=== PATIENT | female | born 1945 | race Caucasian/White ===

== ENCOUNTER → 2023-09-05 13:46 | Outpatient (CLI) | payer MEDICARE, SELFPAY ==
[2023-09-05 14:57] LABS: Add Manual Diff / Slide Review NO; Basophils Absolute Auto 100 /uL (0-100); Basophils Percent Auto 0.9 % (0-2); Eosinophils Absolute Auto 100 /uL (0-450); Eosinophils Percent Auto 1.4 % (2-4); Hematocrit 49.9 % (36-46); Hemoglobin 16.9 g/dL (12.0-16.0); Lymphocytes Absolute Auto 1700 /uL (1100-4500); Lymphocytes Percent Auto 24.5 % (25-40); Mean Corpuscular HGB Conc 33.8 % (30-36); Mean Corpuscular Hemoglobin 32.5 PG (26-34); Mean Corpuscular Volume 96.3 fL (80-100); Monocytes Absolute Auto 500 /uL (0-900); Monocytes Percent Auto 7.5 % (3-14); Neutrophils Absolute Auto 4500 /uL (1500-7000); Neutrophils Percent Auto 65.7 % (50-75); Platelet Count 205 X10^3/uL (150-400); Red Blood Cell Count 5.19 X10^6/uL (4.0-5.2); Red Cell Distribution Width 14.2 % (11.6-14.8); White Blood Cell Count 6.8 X10^3/uL (4.5-11.0)
[2023-09-05 15:19] LABS: Alanine Aminotransferase 21 IU/L (<35); Albumin 4.4 g/dL (3.5-5.0); Albumin Globulin Ratio 1.4 (1.0-2.8); Alkaline Phosphatase 93 U/L (38-126); Aspartate Aminotransferase 25 IU/L (14-36); BUN Creatinine Ratio 24.2 (6-22); Bilirubin Total 0.7 mg/dL (0.2-1.3); Blood Urea Nitrogen 16 mg/dL (7-17); Calcium 9.4 mg/dL (8.4-10.2); Carbon Dioxide 30 mmol/L (22-32); Chloride 105 mmol/L (98-107); Cholesterol 193 mg/dL (140-199); Estimated Glomerular Filt Rate > 60 mL/min (>60); Globulin 3.1 g/dL (1.7-4.1); Glucose 93 mg/dL (80-110); HDL Cholesterol 59 mg/dL (40-60); HEMOLYSIS < 15 (0-50); LDL Cholesterol Calculated 103 mg/dL (<100); Potassium 3.9 mmol/L (3.4-5.1); Sodium 141 mmol/L (137-145); Total Protein 7.5 g/dL (6.3-8.2); Triglycerides 153 mg/dL (35-150)
== END ==
PROVIDERS: PCP Family Medicine; Referring Provider Family Medicine; Visit Provider Family Medicine
DX: Z00.00 Encounter for general adult medical examination without abnormal findings (principal); I10 Essential (primary) hypertension; E78.5 Hyperlipidemia, unspecified; Z76.89 Persons encountering health services in other specified circumstances
CPT/HCPCS: 80053; 80061; 85025

== ENCOUNTER 2024-08-17 13:04 | Emergency (ER) | payer MEDICARE, OTHER, SELFPAY ==
[2024-08-17] VITALS (8 sets, daily range): BP systolic 141–227; BP diastolic 66–101; PULSE 69–88; RESP 17; TEMP 36.2; O2SAT 96–99; BMI 28.1
--- NOTE | 2024-08-17 13:26 | EKG_ITS ---
[address] [address] Test Date: 2024-08-17 Pat Name: Cheri Hernandez Department: [facility] Room: Gender: Female Insole Channeler: BISI : 1945 Requested By: Order Number: [id number] Reading MD: Donnie Varela Measurements Intervals [place] Rate: 75 P: 48 PA: 140 QRS: 49 QRSD: 68 T: 52 QT: 418 QTc: 466 Interpretive Statements Normal sinus rhythm Electronically Signed On 08-19-2024 8:43:33 PDT by Donnie Varela
--- NOTE | 2024-08-17 14:05 | ED_ITS ---
HPI - Abdominal Pain General Chief Complaint: Abdominal Pain Stated Complaint: Constipation t-14, Abd Px Time Seen by Provider: 08/17/24 14:04 Source: patient, RN notes reviewed and old records reviewed Mode of arrival: Ambulatory Limitations: no limitations History of Present Illness HPI narrative: 79-year-old female history of hypertension, dyslipidemia presents with complaint of abdominal starting August 05 that was severe improved and constipation since 08/05/24. Patient states she has had some abdominal pain kind of more in the upper abdomen across to both sides does sometimes go towards her back. Worse with eating. She has had some decreased appetite this week denies fevers or chills has felt a little bit colder. Threw up 4 times on August 06 but states she has a lot of nachos and hot salsa and thought it was secondary to that. Did feel nauseated a couple days ago but not currently. Patient states she did have a bowel movement on 3 days ago after taking a laxative on Monday. She states it was quite a bit of liquid no black or bloody stools there are several chunks that appeared to be she do sized. Patient has denied any urinary symptoms. No new swelling in extremities. Patient states symptoms have not worsened pain might actually be little bit better but has not resolved so she came for evaluation. Does have a history significant for hypertension has been out of her lisinopril, does have a history of back surgery, back stimulator and appendectomy. Not on any prescription medications currently. No known drug allergies. No tobacco, alcohol or recreational drugs. She was establishing with a primary care physician and Guerline Perez next month. Was seeing Dr. Roberts prior to this. Patient is accompanied by family. Patient notes had a brother who of small-bowel obstruction sister who had some kind of gastric issues and had to have emergency surgery for stomach. Related Data Home Medications Medication Instructions Recorded Confirmed Cymbalta 30 mg PO 2XD 08/17/24 08/17/24 Spiriva Respimat 08/17/24 Ventolin 08/17/24 Previous Rx's Medication Instructions Recorded Disabled Parking Permit #1 ea 09/05/23 rosuvastatin 20 mg tablet 20 mg PO DAILY #90 tabs 09/12/23 hydrochlorothiazide 12.5 mg tablet 12.5 mg PO DAILY #90 tabs 12/25/23 albuterol sulfate 90 mcg/actuation 2 puff inhalation Q4-6H PRN 01/31/24 aerosol inhaler (ProAir HFA) shortness of breath or wheezing #6.7 grams duloxetine 30 mg capsule,delayed 30 mg PO BID PRN back pain #180 01/31/24 release caps tiotropium bromide 2.5 2 puff inhalation DAILY #4 grams 01/31/24 mcg/actuation mist for inhalation (Spiriva Respimat) hydrochlorothiazide 12.5 mg tablet 12.5 mg PO DAILY #30 tabs 08/17/24 rosuvastatin 20 mg tablet 20 mg PO DAILY #30 tabs 08/17/24 Allergies Allergy/AdvReac Type Severity Reaction Status Date / Time No Known Drug Allergies Allergy Verified 08/17/24 13:08 Review of Systems Review of Systems ROS Unobtainable: All systems reviewed & are unremarkable except as noted in HPI and below Patient History Medical History Hearing loss Cataracts, bilateral (~2018) Peripheral vascular disease History of tobacco use Chronic back pain HLD (hyperlipidemia) HTN (hypertension) Surgical History Anesthesia History of surgery (~2019) History of back surgery History of surgery History of appendectomy Family History Brother No problems noted. Sister Cancer Sister No problems noted. Social History Smoking Status: Former smoker Smoking Status: Former smoker Exam Narrative Exam Narrative: GENERAL: Alert and oriented x three, female in mild distress HEENT: Head normocephalic, atraumatic, EOMI, pupils reactive, face symmetric, moist mucous membranes NECK: Supple, full range of motion CARDIOVASCULAR: Regular rate and rhythm without murmurs, rubs or gallops. RESPIRATORY: Breath sounds equal bilaterally, no wheezes rales or rhonchi. ABDOMEN: Soft, nontender. Patient is slightly distended and feels full. Normoactive bowel sounds all 4 quadrants. No guarding or rebound, rigidity, no mass : No CVA tenderness EXTREMITIES: Normal range of motion, no clubbing or edema. Neurovascularly intact NEUROLOGICAL: Cranial nerves II through XII grossly intact. Moving all extremities SKIN: Warm, dry, no petechiae, no rashes or lesions. Initial Vital Signs Initial Vital Signs: Vital Signs Temperature 97.2 F L 08/17/24 13:09 Pulse Rate 88 08/17/24 13:09 Respiratory Rate 17 08/17/24 13:09 Blood Pressure 227/101 H 08/17/24 13:09 Pulse Oximetry 99 08/17/24 13:09 Oxygen Delivery Method Room Air 08/17/24 13:09 Course Orders Ordered: ED Orders 08/17/24 13:16 EKG-12 Lead Stat 08/17/24 13:56 Cancer Antigen 125 Stat Complete Blood Count AUTO DIFF Stat Comprehensive Metabolic Panel Stat Lipase Stat 08/17/24 14:17 CT abdomen pelvis w con Stat Discontinued Medications Ketorolac Tromethamine (Ketorolac 30 Mg/Ml Vial) 15 mg IV NOW ONE Stop: 08/17/24 15:01 Last Admin: 08/17/24 15:04 Dose: 15 mg Documented By: UMA Ondansetron HCl (Ondansetron 4 Mg/2 Ml Inj) 4 mg IV NOW PRN PRN Reason: Nausea And Vomiting Ondansetron HCl (Ondansetron 4 Mg Odt) 4 mg PO NOW PRN PRN Reason: Nausea And Vomiting Vital Signs Vital signs: Vital Signs - 8 hr 08/17/24 13:09 08/17/24 13:55 08/17/24 14:00 Temperature 97.2 F L Pulse Rate 88 73 72 Respiratory Rate 17 Blood Pressure 227/101 H 141/66 H 141/68 H Pulse Oximetry 99 98 97 Oxygen Delivery Method Room Air 08/17/24 14:34 08/17/24 15:00 08/17/24 15:30 Temperature Pulse Rate 75 69 71 Respiratory Rate Blood Pressure 186/84 H Pulse Oximetry 97 97 97 Oxygen Delivery Method 08/17/24 16:00 08/17/24 16:20 Temperature Pulse Rate 70 69 Respiratory Rate Blood Pressure 151/69 H Pulse Oximetry 97 96 Oxygen Delivery Method MDM - Abdominal Pain Lab Data 08/17/24 13:56 08/17/24 13:56 Labs: Lab Results 08/17/24 Range/Units 13:56 WBC 7.8 (4.5-11.0) X10^3/uL RBC 4.42 (4.0-5.2) X10^6/uL Hgb 14.1 (12.0-16.0) g/dL Hct 42.1 (36-46) % MCV 95.3 (80-100) fL MCH 31.9 (26-34) PG MCHC 33.5 (30-36) % RDW 12.7 (11.6-14.8) % Plt Count 333 (150-400) X10^3/uL Neut % (Auto) 77.3 H (50-75) % Lymph % (Auto) 15.4 L (25-40) % [place] % (Auto) 4.7 (3-14) % Eos % (Auto) 1.6 L (2-4) % Baso % (Auto) 1.0 (0-2) % Neut # (Auto) 6000 (9635-3112) /uL Lymph # (Auto) 1200 (3894-2332) /uL [place] # (Auto) 400 (0-900) /uL Eos # (Auto) 100 (0-450) /uL Baso # (Auto) 100 (0-100) /uL Sodium 139 (137-145) mmol/L Potassium 3.8 (3.4-5.1) mmol/L Chloride 103 (98-107) mmol/L Carbon Dioxide 27 (22-32) mmol/L BUN 11 (7-17) mg/dL Creatinine 0.59 (0.52-1.04) mg/dL Estimated GFR > 60 (>60) mL/min BUN/Creatinine Ratio 18.6 (6-22) Glucose 93 (80-110) mg/dL Calcium 8.6 (8.4-10.2) mg/dL Total Bilirubin 0.5 (0.2-1.3) mg/dL AST 28 (14-36) IU/L ALT 29 (<35) IU/L Alkaline Phosphatase 75 (38-126) U/L Total Protein 6.6 (6.3-8.2) g/dL Albumin 3.8 (3.5-5.0) g/dL Globulin 2.8 (1.7-4.1) g/dL Albumin/Globulin Ratio 1.4 (1.0-2.8) Lipase 196 (23-300) U/L CA 125 Antigen 50.9 H (0-35) U/mL Point of care testing: Urine Dip Bedside Urine Glucose Negative Bedside Urine Bilirubin - Negative Bedside Urine Ketone - Negative Urine Specific [place] 1.005 Bedside Urine Occult Blood - Negative Bedside Urine pH 6.0 Bedside Urine Protein - Negative Bedside Urine Urobilinogen - Negative Bedside Urine Nitrite - Negative Bedside Urine Leukocytes - Negative Esterase Imaging Data CT scan - abdomen/pelvis: Radiologist's Impression: Cheri Hernandez??79??F??1945 ? Allergy/Adv: No Known Drug Allergies Close Abdomen/Pelvis CT (Signed) Kamille Vyasth - 08/17/24 Launch?[address] [address] [address] Scan Report Signed Patient: Cheri Hernandez MR#: [id number] : 1945 Acct:[id number] Age/Sex: 79 / F Date of Service: 08/17/24 Loc: ED Accession Number: [id number] Procedure: CT abdomen pelvis w con Ordering Provider: Sabrina Gonzalez D.O. PROCEDURE: CT ABDOMEN PELVIS W CON INDICATIONS: constipation since 08/05, liquid BM 2 days ago, bloating TECHNIQUE: After the administration of intravenous contrast, axial sections acquired from the lung bases to the pubic symphysis. Coronal and sagittal reformats were performed. For radiation dose reduction, the following was used: automated exposure control, adjustment of mA and/or kV according to patient size. COMPARISON: None. FINDINGS: Image quality: Diagnostic. Lower Chest: No significant findings. ABDOMEN: Liver: No solid mass. Gallbladder: No radiopaque gallstones or wall thickening. Biliary ducts: No biliary dilation. Pancreas: There is marked mesenteric edema about the pancreas which has a mildly edematous appearance. There is no ductal dilation or focal mass.. Spleen: Size is within normal limits. Adrenal Glands: No adrenal nodules. Kidneys and Ureters: No hydronephrosis. No solid mass. No complex renal cystic lesion which requires follow up. Stomach and Bowel: Normal colonic caliber, without significant wall thickening. Peritoneum: No abnormal intraperitoneal fluid. No free air. Ventral Wall: No significant ventral hernia. Abdominal Nodes: No retroperitoneal or mesenteric adenopathy by size criteria. Vessels: Aorta and inferior vena cava are normal in size. PELVIS: Pelvic Organs: There is a nearly 8 cm right ovarian cystic lesion which is heterogeneous and a 4.2 cm left ovarian cyst. Calcified fibroids are seen within the uterus.. Bladder: No bladder wall thickening, accounting for underdistention. Pelvic Nodes: No enlarged lymph nodes. Miscellaneous: No inguinal hernias are seen. In the spinal stimulator is seen within the thoracic spine with wires and device in these subcutaneous fat of the right flank. This Bones: No aggressive osseous abnormality. Postsurgical changes of the lumbar spine are shown. Severe bilateral hip osteoarthritis is present. IMPRESSION: 1. Acute pancreatitis. 2. Bilateral ovarian cystic lesions which are suspicious. Pelvic ultrasound is recommended for further evaluation when clinically feasible. Dictated by: Ivet Vyas M.D. on 08/17/2024 at 14:03 Approved by: Ivet Vyas M.D. on 08/17/2024 at 14:08 ECG Data Attestation: I personally reviewed and interpreted this ECG as follows: Prior ECG tracings: not available for review Interpretation: Sinus rhythm rate of 75 MI 140 QRS is 68 QTC of 466, no acute ST elevation likely motion artifact in V2, nonspecific change otherwise. No prior for comparison. MDM Narrative Medical decision making narrative: 79-year-old female presents with complaint of abdominal pain particularly worse with eating food but notes she has been constipated has had a bowel movement last after a laxative which she describes as liquidy but a large amount of stool. Patient does feel little bit full and distended on exam although she was nontender. Sinus rhythm nonspecific change. Labs show white count 7.8 hemoglobin of 14 platelets of 333. Electrolytes are appropriate BUN and creatinine are normal glucose is 93 bilirubin, AST ALT and lipase are normal. Point of care urine is negative. CT abdomen pelvis shows mesenteric edema about the pancreas mildly edematous appearance no ductal dilation or focal mass, 8 cm right ovarian cystic lesion heterogeneous and a 4.2 left ovarian cyst calcified fibroid seen within the uterus. Posterior goal changes of the lumbar spine, severe bilateral hip osteoarthritis spinal stimulator seen within thoracic spine with the wires devices and subcutaneous fat of the right flank. Patient's do not show pancreatitis but there is some changes potential acute pancreatitis on CT imaging also has not 8 cm right ovarian cystic lesion and 4.2 left ovarian cyst. Findings were discussed with flying teacher, Dr. Fraire. She asked for a CA 125, to make sure patient is cc to her and they will try to get patient in this Monday for follow up. Discussed findings with the patient at this time I feel she was appropriate for discharge home for follow-up with gynecology, patient is also to follow up with her primary care she does have some changes of the pancreas but normal labs she has had longstanding symptoms I do not feel that she needs to be admitted today. Reviewed findings with the patient she feels comfortable with the plan. We did discuss that is very concerning that she has these enlarged cystic lesions at the ovaries and it is very important that she follows up. She defers anything for pain at home. She was out of her blood pressure medication as well as her medication for dyslipidemia she has a follow up in a month we will refill these for 30 days. Discharge Plan Departure Patient Disposition: Home Clinical Impression: Bilateral ovarian cysts Activity Restrictions/Additional Instructions: Your labs show normal pancreatic enzymes but you do have a little bit of edema the pancreas. This could be associated with pancreatitis but you do not have any labs changes consistent with pancreatitis. Follow up with your primary care physician regarding these changes. It is also noted that you have bilateral ovarian cystic lesions on your imaging, this is not a normal finding. You need to follow up with flying teacher for further workup. You do have one test currently pending for this follow up. I spoke with on-call OB today they would like to see you potentially Monday versus Monday. Call Monday morning to set up a follow up appointment. I spoke with Dr. Fraire, her contact information is below. Pres[facility] for your blood pressure and cholesterol [facility] [place]. Please return for fevers, new or worsening abdominal back or flank pain, persistent vomiting, lightheadedness or passing out or other new or concerning changes. Prescriptions: New hydrochlorothiazide 12.5 mg tablet 12.5 mg PO DAILY Qty: 30 0RF rosuvastatin 20 mg tablet 20 mg PO DAILY Qty: 30 0RF No Action rosuvastatin 20 mg tablet 20 mg PO DAILY Qty: 90 0RF hydrochlorothiazide 12.5 mg tablet 12.5 mg PO DAILY Qty: 90 1RF Rx Instructions: [facility] Phone# Fax# albuterol sulfate [ProAir HFA] 90 mcg/actuation HFA aerosol inhaler 2 puff inhalation Q4-6H PRN (Reason: shortness of breath or wheezing) Qty: 6.7 1RF duloxetine 30 mg capsule,delayed release(DR/EC) 30 mg PO BID PRN (Reason: back pain) Qty: 180 1RF Rx Instructions: [facility] Phone# Fax# Spiriva Respimat 2.5 mcg/actuation mist 2 puff inhalation DAILY Qty: 4 1RF Rx Instructions: [facility] Phone# Fax# (DME) Disabled Parking Permit See Rx Instructions .Route .MEDSUPPLY Qty: 1 0RF Rx Instructions: Valid for 5 years Cymbalta 30 mg PO 2XD Ventolin Spiriva Respimat Referrals: Karla Fraire MD [Physician] - Marisela Lofton DO [Primary Care Provider] - Stand Alone Forms: Patient Portal/API/Survey
[2024-08-17 14:15] LABS: Alanine Aminotransferase 29 IU/L (<35); Albumin 3.8 g/dL (3.5-5.0); Albumin Globulin Ratio 1.4 (1.0-2.8); Alkaline Phosphatase 75 U/L (38-126); Aspartate Aminotransferase 28 IU/L (14-36); BUN Creatinine Ratio 18.6 (6-22); Bilirubin Total 0.5 mg/dL (0.2-1.3); Blood Urea Nitrogen 11 mg/dL (7-17); Calcium 8.6 mg/dL (8.4-10.2); Carbon Dioxide 27 mmol/L (22-32); Chloride 103 mmol/L (98-107); Estimated Glomerular Filt Rate > 60 mL/min (>60); Globulin 2.8 g/dL (1.7-4.1); Glucose 93 mg/dL (80-110); HEMOLYSIS < 15 (0-50); Lipase 196 U/L (23-300); Potassium 3.8 mmol/L (3.4-5.1); Sodium 139 mmol/L (137-145); Total Protein 6.6 g/dL (6.3-8.2)
--- NOTE | 2024-08-17 14:17 | DI.CT.S_ITS ---
PROCEDURE: CT ABDOMEN PELVIS W CON INDICATIONS: constipation since 08/05, liquid BM 2 days ago, bloating TECHNIQUE: After the administration of intravenous contrast, axial sections acquired from the lung bases to the pubic symphysis. Coronal and sagittal reformats were performed. For radiation dose reduction, the following was used: automated exposure control, adjustment of mA and/or kV according to patient size. COMPARISON: None. FINDINGS: Image quality: Diagnostic. Lower Chest: No significant findings. ABDOMEN: Liver: No solid mass. Gallbladder: No radiopaque gallstones or wall thickening. Biliary ducts: No biliary dilation. Pancreas: There is marked mesenteric edema about the pancreas which has a mildly edematous appearance. There is no ductal dilation or focal mass.. Spleen: Size is within normal limits. Adrenal Glands: No adrenal nodules. Kidneys and Ureters: No hydronephrosis. No solid mass. No complex renal cystic lesion which requires follow up. Stomach and Bowel: Normal colonic caliber, without significant wall thickening. Peritoneum: No abnormal intraperitoneal fluid. No free air. Ventral Wall: No significant ventral hernia. Abdominal Nodes: No retroperitoneal or mesenteric adenopathy by size criteria. Vessels: Aorta and inferior vena cava are normal in size. PELVIS: Pelvic Organs: There is a nearly 8 cm right ovarian cystic lesion which is heterogeneous and a 4.2 cm left ovarian cyst. Calcified fibroids are seen within the uterus.. Bladder: No bladder wall thickening, accounting for underdistention. Pelvic Nodes: No enlarged lymph nodes. Miscellaneous: No inguinal hernias are seen. In the spinal stimulator is seen within the thoracic spine with wires and device in these subcutaneous fat of the right flank. This Bones: No aggressive osseous abnormality. Postsurgical changes of the lumbar spine are shown. Severe bilateral hip osteoarthritis is present. IMPRESSION: 1. Acute pancreatitis. 2. Bilateral ovarian cystic lesions which are suspicious. Pelvic ultrasound is recommended for further evaluation when clinically feasible. Dictated by: Ivet Vyas M.D. on 08/17/2024 at 14:03 Approved by: Ivet Vyas M.D. on 08/17/2024 at 14:08
[2024-08-17 14:19] LABS: Add Manual Diff / Slide Review NO; Basophils Absolute Auto 100 /uL (0-100); Eosinophils Absolute Auto 100 /uL (0-450); Eosinophils Percent Auto 1.6 % (2-4); Hematocrit 42.1 % (36-46); Hemoglobin 14.1 g/dL (12.0-16.0); Lymphocytes Absolute Auto 1200 /uL (1100-4500); Lymphocytes Percent Auto 15.4 % (25-40); Mean Corpuscular HGB Conc 33.5 % (30-36); Mean Corpuscular Hemoglobin 31.9 PG (26-34); Mean Corpuscular Volume 95.3 fL (80-100); Monocytes Absolute Auto 400 /uL (0-900); Monocytes Percent Auto 4.7 % (3-14); Neutrophils Absolute Auto 6000 /uL (1500-7000); Neutrophils Percent Auto 77.3 % (50-75); Platelet Count 333 X10^3/uL (150-400); Red Blood Cell Count 4.42 X10^6/uL (4.0-5.2); Red Cell Distribution Width 12.7 % (11.6-14.8); White Blood Cell Count 7.8 X10^3/uL (4.5-11.0)
[2024-08-17] MEDS: KETOROLAC 30 MG/ML VIAL 15 MG IV (15:04)
--- NOTE | 2024-08-17 15:32 | PC.NURSE ---
Dr.Garde hsu'd for consult with @[phone] and savita @[phone].
[2024-08-17 16:18] LABS: Cancer Antigen 125 50.9 U/mL (0-35)
== END 2024-08-17 16:27 | disposition home or self-care (01) ==
PROVIDERS: Emergency Provider Emergency Medicine; PCP Family Medicine
DX: N83.202 Unspecified ovarian cyst, left side (principal); N83.201 Unspecified ovarian cyst, right side; K59.00 Constipation, unspecified
CPT/HCPCS: 36415; 74177; 80053; 81003; 83690; 85025; 86304; 93005; 96374; 99284; J1885; Q9967

== ENCOUNTER → 2024-08-23 15:17 | Outpatient (CLI) | payer MEDICARE, OTHER, SELFPAY ==
--- NOTE | 2024-08-23 15:18 | DI.US.S_ITS ---
PROCEDURE: US PELVIC COMPLETE INDICATIONS: abnormal CT scan ovarian cystic lesion TECHNIQUE: Real-time scanning was performed of the pelvic organs, with image documentation. Additional endovaginal scanning was necessary due to incomplete visualization of the adnexal and endometrial structures by transabdominal scanning. COMPARISON: [facility], CT, CT ABDOMEN PELVIS W CON, 08/17/2024, 14:23. FINDINGS: Uterus: Uterus is retroverted and normal in size at 4.9 x 4.3 x 2.9 cm. The myometrium is heterogeneous. The endometrium measures 12 mm combined thickness. Intramural fibroids with internal calcifications are present, measuring 2.0 x 1.9 x 1.9 centimeter and 3.0 x 3.7 x 2.1 centimeter. Ovaries: The right ovary measures 8.8 x 7.6 x 6.2 cm, with a calculated ovarian volume of 217 cc. The left ovary is not clearly identified. There is a right ovarian cystic mass containing multiple thin internal septations and no internal papillary projections. This measures 8.1 x 7.1 x 6.3 centimeter. Simple appearing left adnexal cystic structure measuring 3.3 x 4.2 x 3.7 centimeter, without papillary projections. Other: No pathologic free abdominal or pelvic fluid. IMPRESSION: Multiloculated right ovarian cystic lesion measuring 8.1 x 7.1 x 6.3 centimeters. O-RADS 3. Consider nonemergent pelvic MRI for complete characterization. Simple appearing left adnexal cystic lesion measuring 3.3 x 4.2 x 3.7 centimeter. O-RADS 2. We strive to produce accurate, complete, and clear reports of imaging services. To assist us in improving patient care, this report was composed using standard report templates and voice recognition software. Therefore, it may contain abnormal punctuation, insertions and/or omissions. Occasional wrong-word or sound-alike substitutions may occur. Though we review the report and make efforts to correct it, we do recommend that the report be read carefully in proper context to recognize any text inaccuracies. Dictated by: Jerry Espinoza M.D. on 08/23/2024 at 16:28 Approved by: Jerry Espinoza M.D. on 08/23/2024 at 16:31
== END ==
PROVIDERS: PCP Family Medicine; Referring Provider Obstetrics & Gynecology; Visit Provider Obstetrics & Gynecology
DX: N83.201 Unspecified ovarian cyst, right side (principal); N83.202 Unspecified ovarian cyst, left side; D25.1 Intramural leiomyoma of uterus
CPT/HCPCS: 76830; 76856

== ENCOUNTER 2024-09-03 12:09 | Day surgery (SDC) | payer MEDICARE, OTHER, SELFPAY ==
[2024-08-27 14:04] VITALS: BMI 28.1
[2024-09-03] VITALS (7 sets, daily range): BP systolic 117–185; BP diastolic 62–88; PULSE 68–94; RESP 12–18; TEMP 36.2–36.6; O2SAT 94–97; BMI 28.1
--- NOTE | 2024-09-03 | PATH_ITS ---
[facility] Accession Number: [id number] No. of containers..02 Tissue . 01 Material submitted: . PART A: ovary - BILATERAL OVARIES AND PARTIAL FALLOPIAN TUBES PART B: endometrium - ENDOMETRIAL CURETTING . 01 Diagnosis: A. BILATERAL OVARIES AND PARTIAL FALLOPIAN TUBES: Segment of fallopian tube, complete cross-sections; negative for significant atypia. First-described ovary (7.6 cm in greatest dimension) with a benign multiloculated serous cystadenoma. Second-described segment of fallopian tube, complete cross-section; negative for significant atypia. Second-described ovary (3.7 cm in greatest dimension) with a benign multiloculated serous cystadenoma. No atypia identified. . B. ENDOMETRIAL CURETTING: Portions of metaplastic squamous mucosa; negative for significant atypia. Detached glandular elements; negative for significant atypia. Suboptimal for evaluation of glandlular hyperplasia or neoplasia due to scant endometrial stromal component. Please see comment. [facility] 09/09/2024 1439 Local . 01 Comment: Part B: Due to the scant nature of this biopsy, it may not be entirely cordage sales representative of this patient's endometrium; additional sampling could be considered, if clinically appropriate. . Parts of this case were also reviewed by Dr. Rodri Mcrae (Julie), who agrees with the interpretation. . 01 Electronically signed: . Renetta Lima MD, Pathologist NPI- [id number] . 01 Gross description: . A. Received in formalin with two patient identifiers and bilateral ovaries and partial fallopian tubes are two tubo-ovarian units. The first has a dilated multicystic, disrupted ovary, 7.6 x 6.8 x 2.5 cm and weighing 28 grams with an attached nonfimbriated segment of fallopian tube, 2.7 cm in length by 0.5 cm in diameter. The tube has avina smooth serosa with no cysts identified and the lumen is stellate and unremarkable. The external surface of the ovary is inked blue and sectioning reveals a multiloculated cyst with contents ranging from clear and serous to avina and gelatinous. The cyst oliveros are relatively uniform in thickness at approximately 0.1 cm thick. An area of papillary excrescences is identified with excrescences measuring up to 0.5 cm in greatest dimension. No normal ovarian parenchyma is identified. . The second ovary is 3.7 x 3.3 x 2.7 cm and weighs 13 grams. The attached portion of nonfimbriated segment of fallopian tube measures 2.6 x 0.4 cm. The tube has avina smooth serosa with no cysts identified and the lumen is stellate and unremarkable. The ovary is dilated and multicystic with the external surface inked green. Sectioning reveals a multiloculated cystic structure with thin oliveros averaging less than 0.1 cm thick with no excrescences identified. The contents are clear and serous. No normal ovarian parenchyma is identified. Materials Scheduler are submitted as follows: A1: First fallopian tube. A2-A8: First ovary. Note: All excrescences are submitted in A2-A3. A9: Second fallopian tube. A10-A12: Second ovary. B. Received in formalin with two patient identifiers and endometrial curetting, is a scant amount of avina soft tissue admixed with mucohemorrhagic material on friable Telfa paper aggregating to 0.5 x 0.3 x 0.1 cm. Filtered and submitted entirely in B1. ([id number]) /MRV 09/04/20242058 Local . 01 Pathologist provided ICD-10: N83.299 . 01 CPT . 861827, 695331 Specimen Comment: A courtesy copy of this report has been sent to [phone] Performed at: [address] [facility] [address], [place], [place] [id number] MD Richard Vazquez MD Phone: [phone]
--- NOTE | 2024-09-03 07:41 | PM.GYNHP.1 ---
History of Present Illness History of Present Illness Reason for admission: pelvic mass Narrative: Cheri Hernandez is a 79 year old female 2 para 2 with bilateral ovarian masses, and thickened endometrial lining on ultrasound with postmenopausal bleeding She presents for a laparoscopic bilateral salpingo-oophorectomy and D and C hysteroscopy. [facility] Medical History (Updated 09/01/24 @ 00:01 by ) Presence of neurostimulator Hearing loss Cataracts, bilateral (~2017) Peripheral vascular disease History of tobacco use Chronic back pain HLD (hyperlipidemia) HTN (hypertension) Surgical History Anesthesia History of surgery (~2019) History of back surgery History of surgery History of appendectomy Family History Brother No problems noted. Sister Cancer Sister No problems noted. Social History Smoking Status: Former smoker alcohol intake: current Meds Home Medications and Allergies Home Medications Medication Instructions Recorded Confirmed Type Disabled Parking Permit #1 ea 09/05/23 08/26/24 Rx hydrochlorothiazide 12.5 mg tablet 12.5 mg PO DAILY #30 tabs 08/17/24 09/03/24 Rx rosuvastatin 20 mg tablet 20 mg PO DAILY #30 tabs 08/17/24 09/03/24 Rx Allergies Allergy/AdvReac Type Severity Reaction Status Date / Time No Known Drug Allergies Allergy Verified 09/03/24 12:35 Exam Narrative Exam Narrative: HEENT: No thyromegaly, no anterior cervical or supraclavicular lymphadenopathy. Lungs:Clear to auscultation bilaterally, no wheezes. Cardiovascular: Regular rate and rhythm, no murmurs, rubs, or gallops. Abdomen: Well-healed scars. No hepatosplenomegaly. No masses palpable. External genitalia: Normal Vagina: Normal Cervix: Normal Bimanual exam: 5 Week size anteverted uterus. Mobile. Extremities: No edema Assessment & Plan Assessment & Plan narrative: Assessment: 79-year-old 2 para 2 with bilateral ovarian masses Thickened endometrium on ultrasound with postmenopausal bleeding Plan: Laparoscopic bilateral salpingo-oophorectomy and D and C hysteroscopy The risks, benefits, and alternatives to the procedure were explained to the patient. The risks including bleeding, infection, injury to the bowel, bladder, ureters, or uterine perforation. She understands these risks and agrees to proceed. A full par Q was held and consent form was signed. Time-Based Coding :: [TOTAL MINUTES] spent with patient and on the chart (including review of chart, obtaining history, exam, reviewing outside data, placing orders, documenting exam and treatment plan, and counseling patient) on [DATE].
--- NOTE | 2024-09-03 07:44 | PM.PREOP ---
Pre-operative Note Interval Note History & Physical reviewed/Exam performed by Physician: Yes Changes to H&P: No H&P completed within 30 days and has changed as indicated here:: 09/03/24
[2024-09-03] MEDS: LACTATED RINGERS 1,000 ML 21 ML IV (12:34)
[2024-09-03] MEDS: ACETAMINOPHEN IV 1,000 MG/100 ML VIAL 400 MG IV (12:55)
--- NOTE | 2024-09-03 14:10 | SUR.OPER ---
Lithotomy on padded OR bed. Bucklin Pad Positioner under torso. Head on pillow, arms padded and tucked at sides. Legs secured in padded yellow fins stirrups.
[2024-09-03] MEDS: BUPIVACAINE 0.5% W/ EPI (PF) 30 ML VIAL INJ (14:25)
--- NOTE | 2024-09-03 14:53 | PATH_ITS ---
Note [facility] Accession Number: [id number] TESTS RESULT FLAG UNITS REF RANGE LAB Clinician Provided Cytology Information No. of containers..01 Other (Miscellaneous) Source: CYST FLUID DIAGNOSIS: CYST FLUID, SITE UNSPECIFIED NEGATIVE FOR MALIGNANT CELLS. MACROPHAGES AND DEGENERATED BLOOD, CONSISTENT WITH CYST CONTENTS. THIS INTERPRETATION INCLUDES EVALUATION OF A CELL BLOCK. Pathologist ICD10: 01 N83.209 Signed out by: Rody Chaudhry DO, Pathologist NPI- [id number] Performed by: Lyle Sauceda, Inspector Packager ([facility]) Gross description: 12 CC, YELLOW, HAZY RECEIVED: FRESH IN BLUE CAP CONTAINER.VO /VDU 09/04/2024 1033 Local FLAG LEGEND: L-Low Normal,H-High Normal,LL-Alert Low,HH-Alert High <-Panic Low,>-Panic High,A-Abnormal,AA-Critical Abnormal Performed at: 01 [facility] [address], [place] [address] Richard Vazquez MD, Specimen Comment: A duplicate report has been generated due to demographic updates. Performed at: [address] [facility], [place], [place] [id number] MD Richard Vazquez MD Phone: [phone]
--- NOTE | 2024-09-03 15:17 | P.OP_ITS ---
Operative Date/Time/Diagnoses Date of procedure: 09/03/24 Time of procedure: 15:17 Pre-op diagnosis: Bilateral ovarian masses Thickened endometrial lining Post-op diagnosis: same Procedure & Clinicians Procedure: Procedures Operation Date: 09/03/24 13:45 Actual Procedure Side Surgeon p Laparoscopic Salpingo-oophorectomy Bilateral Karla Fraire MD s D&C Karla Fraire MD Indications: 79-year-old with bilateral complex ovarian masses, slightly elevated CA -125 Thickened endometrial lining on ultrasound Surgeon: Karla Fraire Anesthesia Type: General and Local Operative Notes Findings: 5 week size anteverted uterus 7 cm subserosal fibroid at the fundus of the uterus Right ovary measures 12 cm, complex in nature Left ovary measures 6 cm, complex in nature Tubes status post ligation bilaterally Right lower quadrant adhesions consistent with previous appendix removal Normal liver Gallbladder not visualized Closure Type: primary Specimen(s): endometrial curettings, left tube & ovary and right tube & ovary Estimated blood loss (mL): 10 Blood products transfused: none Procedure in detail: After informed consent was obtained, the patient was taken to the operating room where she was placed in the dorsal supine position. After adequate general endotracheal anesthesia was achieved, she was placed in the dorsal lithotomy position, but due to hip immobility, knees were about 12 inches apart. A time- out was performed. A decision was made to just place a sponge stick into the vagina. Attention was then turned to the abdomen where 6 cc of 0.5% Marcaine with epinephrine were injected in the umbilical fold. A 5 mm incision was made. The Veress needle was placed into the peritoneal cavity, and its placement confirmed by aspiration and drop test. The abdominal cavity was insufflated with 3.5 L of CO2. The Veress needle was removed, and a 5 mm trocar was placed without difficulty. 3 cc of air were placed in the cuff. Two other incisions were made 4 cm lateral to the midline after 6 cc of 0.5% Marcaine with epinephrine were injected, with care to avoid the blood vessels with transillumination. Two 5 mm trocars were placed under direct visualization. 3 cc of air were placed in the cuffs. The pelvis and abdomen were examined with the findings noted above. The right tube was grasped with an atraumatic grasper. Using the power seal, the infundibulopelvic ligament on the right side was cauterized and cut. The mesosalpinx was cauterized and cut all the way down to the cornua of the uterus. The tube was amputated at the cornua. Hemostasis was achieved. This was all repeated on the patient's left side. The ovaries and tubes were placed into the right lower quadrant. 6 cc of 0.5% Marcaine with epinephrine were injected 2 cm above the pubic symphysis. A 12 mm incision was made. A 12 mm trocar was placed under direct visualization. A large endobag was placed through the suprapubic trocar. Both tubes and ovary were placed into the bag. The trocar was removed and the edges of the bag were brought up through the incision. A small Yovany was placed into the bag. Using a 60 cc syringe and a 20 gauge spinal needle, both ovaries were decompressed. The bag was then removed without difficulty through the suprapubic incision. The fascia on the suprapubic incision was closed with 0 Vicryl in a running fashion. The subcutaneous layer was irrigated with warm normal saline. Two simple interrupted sutures were placed in the subcutaneous layer to reapproximate. The abdomen was re-insufflated with 3.5 L of CO2. The pelvis and abdomen were examined and hemostasis was achieved. The instruments were removed from the abdomen. The CO2 was allowed to escape. The trocars were removed after the cuffs were deflated. All of the incisions were closed with 4-0 Monocryl in a subcuticular fashion. Steri-Strips and Allevyn dressings were placed. The moistened sponge stick was removed from the vagina. A small speculum was placed into the vagina. There was minimal mobility of the patient's hips. A single- tooth tenaculum was placed on the anterior lip of the cervix. Using a small curette, endometrial curettings were obtained. A decision was made due to the patient's limited hip mobility to not proceed with a hysteroscopy. The instruments were removed from the uterus. The single-tooth tenaculum was removed from the anterior lip of the cervix. The pediatric speculum was removed from the vagina. Sponge, lap, and instrument counts were correct x2. The patient tolerated the procedure well, and was taken to PACU in stable condition. Complications: none Post-operative Condition: stable Disposition: PACU Plan for aftercare: Home after recovery
[2024-09-03] MEDS: fentaNYL 100 MCG/2 ML INJ IV (15:25)
[2024-09-03] MEDS: OXYCODONE IR 5 MG TABLET PO (15:33)
== END 2024-09-03 16:12 | disposition home or self-care (01) ==
PROVIDERS: PCP Family Medicine; Referring Provider Obstetrics & Gynecology; Visit Provider Obstetrics & Gynecology
PROC: 0UT24ZZ Resection of Bilateral Ovaries, Percutaneous Endoscopic Approach (ICD-10-PCS; CPT 58661; principal; 2024-09-03 13:45)
PROC: 0UDB8ZZ Extraction of Endometrium, Via Natural or Artificial Opening Endoscopic (ICD-10-PCS; CPT 58558; 2024-09-03 13:45)
DX: N83.8 Other noninflammatory disorders of ovary, fallopian tube and broad ligament (principal); N95.0 Postmenopausal bleeding; R97.1 Elevated cancer antigen 125 [CA 125]; R93.89 Abnormal findings on diagnostic imaging of other specified body structures; D25.2 Subserosal leiomyoma of uterus; N73.6 Female pelvic peritoneal adhesions (postinfective); D27.1 Benign neoplasm of left ovary; D27.0 Benign neoplasm of right ovary
CPT/HCPCS: 58661; 58120; J0131; J1885; J2405; J2704; J3010

== ENCOUNTER → 2024-10-01 11:55 | Outpatient (CLI) | payer MEDICARE, OTHER, SELFPAY ==
--- NOTE | 2024-10-01 11:58 | DI.US.S_ITS ---
PROCEDURE: US ABDOMEN LIMITED INDICATIONS: RUQ ABD PAIN TECHNIQUE: Real-time scanning was performed of the abdominal and retroperitoneal organs, with image documentation. COMPARISON: None. FINDINGS: Liver: Liver is normal in size and homogeneous in echotexture. Gallbladder: Contracted with multiple gallstones. No wall thickening. No pericholecystic edema. Negative sonographic Marc's sign. Biliary ducts: Intrahepatic bile ducts are non-dilated. Extrahepatic bile duct caliber measures 6 mm. Normal is 6-7 mm or less in diameter, or 10 mm or less post-cholecystectomy. Pancreas: Visualized portions of the pancreas are heterogenous in echotexture. Miscellaneous: No free abdominal fluid. IMPRESSION: 1. Contracted cholelithiasis. No sonographic evidence of acute cholecystitis. 2. Heterogenous parenchymal echotexture, likely secondary to episodes of prior pancreatitis. Dictated by: Jarrod Hickey M.D. on 10/01/2024 at 15:21 Approved by: Jarrod Hickey M.D. on 10/01/2024 at 15:25
== END ==
PROVIDERS: PCP Nurse Practitioner Family; Referring Provider Nurse Practitioner Family; Visit Provider Nurse Practitioner Family
DX: K80.20 Calculus of gallbladder without cholecystitis without obstruction (principal); R10.11 Right upper quadrant pain
CPT/HCPCS: 76705

== ENCOUNTER → 2025-03-10 11:50 | Outpatient (CLI) | payer MEDICARE, OTHER, SELFPAY ==
--- NOTE | 2025-03-10 11:51 | DI.RAD.S_ITS ---
PROCEDURE: XR HIP W PEL IF DONE LT 2V INDICATIONS: chronic left hip pain TECHNIQUE: AP pelvis with lateral view(s) of the left hip(s). COMPARISON: [facility], CT, CT ABDOMEN PELVIS W CON, 08/17/2024, 14:23. FINDINGS: Bones: No fractures or dislocations. Severe bilateral hip joint osteoarthritic changes are seen with near complete loss of joint space, extensive subchondral sclerosis and marginal osteophyte formation. Well corticated bony fragments adjacent to lateral aspect of left femoral head likely represent changes related to remote injury. No evidence of avascular necrosis of femoral heads. Pelvic ring appears intact. No suspicious bony lesions. Postsurgical changes are noted in visualized lower lumbar spine. Stimulator is also noted. Soft tissues: The visualized bowel gas pattern is normal. No suspicious soft tissue calcifications. IMPRESSION: Severe bilateral hip joint osteoarthritis. No acute fracture or dislocation. Suggestion of old injury involving lateral aspect of left hip joint. No evidence of avascular necrosis of femoral heads. Dictated by: Murali Campbell M.D. on 03/10/2025 at 12:41 Approved by: Murali Campbell M.D. on 03/10/2025 at 13:00
== END ==
PROVIDERS: PCP Family Medicine; Referring Provider Family Medicine; Visit Provider Family Medicine
DX: M25.552 Pain in left hip (principal); G89.29 Other chronic pain; M16.0 Bilateral primary osteoarthritis of hip
CPT/HCPCS: 73502

== ENCOUNTER → 2025-04-23 12:10 | Outpatient (CLI) | payer MEDICARE, OTHER, SELFPAY ==
--- NOTE | 2025-04-23 12:13 | DI.RAD.S_ITS ---
PROCEDURE: FL JOINT INJECTION LARGE LT INDICATIONS: left hip pain COMPARISON: None. TECHNIQUE: The indications, alternatives, benefits, risks, and complications of the procedure were explained to the patient. Written informed consent was obtained and placed in the chart. The patient was placed in an appropriate position on the fluoroscopy table, and a site was chosen for percutaneous access under fluoroscopic guidance. The site was prepped and draped in a sterile fashion. Local anesthetic was administered using a 1% lidocaine solution. A hypodermic or spinal needle was then used to access the symptomatic joint. Intra-articular location of the needle tip was confirmed by injecting a small amount of contrast, followed by steroid administration. The needle was then withdrawn, and a bandage applied to the puncture site. FINDINGS: Joint injected: Left hip joint Medications injected: 4 mL of 40 mg/mL Kenalog and 0.5% Ropivacaine mixture. Patient's pain before injection: 7 out of 10. Patient's pain after injection: 4 out of 10. Complications: None. IMPRESSION: Successful fluoroscopically guided administration of steroid and anaesthetic solution into the left joint. Dictated by: Pierre Pérez [facility] Interpreted: Jerry Espinoza MD on 05/28/2025 at 16:43 Approved by: Jerry Espinoza M.D. on 06/03/2025 at 12:32
[2025-04-23] MEDS: LIDOCAINE 1% 20 ML INJ (12:59)
[2025-04-23] MEDS: TRIAMCINOLONE 40 MG/ML VIAL INTRA-ARTI (13:00)
== END ==
LOC: RAD 12:12
PROVIDERS: PCP Family Medicine; Referring Provider Orthopaedic Surgery Adult Reconstructive Orthopaedic Surgery; Visit Provider Orthopaedic Surgery Adult Reconstructive Orthopaedic Surgery
DX: M25.552 Pain in left hip (principal); G89.29 Other chronic pain
CPT/HCPCS: 20610; 77002; Q9967